=== PATIENT | female | born 1995 | race Two or more races ===

== ENCOUNTER 2024-05-03 23:38 | Emergency (ER) | payer MEDICAID, OTHER ==
[~2024-05-03] VITALS: Ht 157.5 cm; Wt 97.6 kg
[2024-05-03 23:45] VITALS: BP 112/72; PULSE 82; RESP 18; O2SAT 98
[2024-05-04] MEDS ORDERED: POLY17PO5 PO (00:51)
== END 2024-05-04 02:23 | disposition home or self-care (01) ==
LOC: ER 23:38
DX: K64.4 Residual hemorrhoidal skin tags (principal); K62.89 Other specified diseases of anus and rectum; K62.5 Hemorrhage of anus and rectum

== ENCOUNTER 2025-04-12 05:24 | Emergency (ER) | payer MEDICAID ==
[~2025-04-12] VITALS: Ht 160 cm; Wt 90.0 kg
[~2025-04-12 05:24] MED LIST: POLY17PO5 PO
[2025-04-12 06:57] LABS: Hematocrit 42.5 % (36.0-46.0); Hemoglobin 14.4 g/dL (12.2-16.2); Mean Corpuscular Hemoglobin 29.1 pg (28.0-32.0); Mean Corpuscular Hgb Conc. 33.9 g/dL (32.0-36.0); Platelet Count (auto) 414 10^3/uL (140-450); Red Blood Cells 4.94 10^6/uL (4.0-5.20); Red Cell Distribution Width 14.4 % (11.8-14.3); White Blood Cell 17.3 10^3/uL (4.4-10.8)
[2025-04-12 07:01] LABS: Sodium 142 mmol/L (136-145)
[2025-04-12 07:02] LABS: Anion Gap 14 (5-15); Carbon Dioxide 21 mmol/L (20-31)
[2025-04-12 07:03] LABS: Calcium 10.4 mg/dL (8.7-10.4); Chloride 107 mmol/L (98-107)
[2025-04-12 07:08] LABS: BUN/Creatinine Ratio 11.4 (10.0-20.0); Blood Urea Nitrogen 9 mg/dL (9-23); Glucose 96 mg/dL (74-106)
[2025-04-12 07:13] LABS: Band Neutrophils % (manual) 0; Basophils % (manual) 0 (0.0-2.0); Blast Cells 0; Metamyelocytes % 0; Myelocytes % 0; Promyelocytes % 0; Reactive Lymphocytes 0
[2025-04-12 07:25] LABS: Urine Bacteria FEW /hpf (None Seen); Urine Blood TRACE /uL (Negative); Urine Clarity Turbid (Clear); Urine Color Light-Orange (Yellow); Urine Mucus FEW (None Seen); Urine Protein, UAD 1+ (Negative); Urine Specific Gravity 1.033 (1.001-1.035); Urine Squamous Epithelial Cell MOD /hpf (<5); Urine Urobilinogen Normal (Negative); Urine WBC 28 /HPF (0-5)
[2025-04-12 07:38] LABS: Eosinophils % (manual) 1 (0-7); Lymphocytes % (manual) 33 (10.0-50.0); Monocytes % (manual) 12 (0-12); Platelet Estimate Adequate
[2025-04-12 07:39] LABS: Large Platelets FEW
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
--- NOTE | 2025-04-12 08:26 | DVH ---
CHEST RADIOGRAPH Indication: epigastric pain Technique: Single frontal view of the chest was obtained COMPARISON: None FINDINGS: Lines and Tubes: None Lungs: Clear Pleura: No effusion. No pneumothorax. Cardiomediastinal contours: Unremarkable Bones: Unremarkable IMPRESSION: No acute disease.
[2025-04-12 08:59] VITALS: BP 125/72; PULSE 80; RESP 16; TEMP 98; O2SAT 97
[2025-04-12] MEDS: SODIUM CHLORIDE 0.9% 1,000 ML IV ONE (09:05)
[2025-04-12] MEDS: PANTOPRAZOLE 40 MG/10 ML VIAL INJ IV ONE (09:05)
[2025-04-12] MEDS: cefTRIAXone 1GM/50ML D5W 50 ML IV ONE (09:06)
[2025-04-12] MEDS: ONDANSETRON HCL 4 MG/2 ML VIAL IV ONE (09:06)
[2025-04-12] MEDS: cefTRIAXone SOD 1,000 MG VL IM ONE (09:15)
[2025-04-12] MEDS ORDERED: CEFD300C2 PO (09:28)
== END 2025-04-12 09:43 | disposition home or self-care (01) ==
LOC: ER 05:24
DX: N30.00 Acute cystitis without hematuria (principal); K62.5 Hemorrhage of anus and rectum
CPT/HCPCS: 36415; 71045; 80048; 81001; 81025; 83605; 85007; 85027; 87040; 96372; 99284; J0696

== ENCOUNTER 2025-05-04 02:32 | Emergency (ER) | payer MEDICAID ==
[~2025-05-04] VITALS: Ht 157.5 cm; Wt 88.2 kg
[~2025-05-04 02:32] MED LIST changes: +CEFD300C2 PO
[2025-05-04 03:04] VITALS: BP 129/83; PULSE 62; RESP 19; TEMP 98.6; O2SAT 96
--- NOTE | 2025-05-04 03:07 | ED.PDOC ---
HPI (NEURO) HPI Comments 29 year old female presents to ER with complaints of headache x 2 days. Patient reports she has been experiencing intermittent headache diffuse to forehead with intermittent nausea x 2 days. She rates her current pain a 3/10 diffuse to forehead without radiation. Notes that prior to her headache starting today she developed blurred vision to left eye that she states fully subsided, denying any current vision changes. Denies use of medications for current symptoms and presents to ER alert and oriented x4, with steady gait, in no distress with vitals stable. Denies vomiting, numbness/tingling, fever, recent illness, extremity weakness, dizziness, neck pain, runny nose or any further symptoms/complaints Time Seen by MD: 02:33 Primary Care Provider: UNKNOWN Reviewed Notes: Nurses Notes, Medications, Allergies Information Source: Patient Mode of Arrival: Ambulatory Past Medical History PAST MEDICAL HISTORY: Denies Surgical History: Denies all surgeries INVAS TECH History: Denies all INVAS TECH Hx Family History Family History: Unknown Social History Smoker: Non-Smoker Alcohol: Denies ETOH Use Drugs: Denies Drug Use Lives In: Home Constitutional: denies: chills, diaphoresis, fatigue, fever, malaise, sweats, weakness, others EENTM: denies: blurred vision, double vision, ear bleeding, ear discharge, ear drainage, ear pain, ear ringing, eye pain, eye redness, hearing loss, mouth pain, mouth swelling, nasal discharge, nose bleeding, nose congestion, nose pain, photophobia, tearing, throat pain, throat swelling, voice changes, others Respiratory: denies: cough, hemoptysis, orthopnea, SOB at rest, shortness of breath, SOB with excertion, stridor, wheezing, others Cardiovascular: denies: chest pain, dizzy spells, diaphoresis, Dyspnea on exertion, edema, irregular heart beat, left arm pain, lightheadedness, palpitations, PND, syncope, others Gastrointestinal: reports: others (As stated in HPI) Genitourinary: denies: abnormal vagina bleeding, burning, dyspareunia, dysuria, flank pain, frequency, hematuria, incontinence, pain, , vagina discharge, urgency, others Neurological: reports: others (As stated in HPI) Musculoskeletal: denies: back pain, gout, joint pain, joint swelling, muscle pain, muscle stiffness, neck pain, others Integumetry: denies: bruises, change in color, change in hair/nails, dryness, laceration, lesions, lumps, rash, wounds, others Allergic/Immunocompromised: denies: Difficulty Healing, Frequent Infections, Hives, Itching, others Hematologic/Lymphatic: denies: anemia, blood clots, easy bleeding, easy bruising, swollen glands, others Endocrine: denies: excessive hunger, excessive sweating, excessive thirst, excessive urination, flushing, intolerance to cold, intolerance to heat, unexplained weight gain, unexplained weight loss, others Psychiatric: denies: anxiety, bipolar disorder, depression, hopeless, panic disorder, schizophrenia, sleepless, suicidal, others Physical Exam General Appearance: No Apparent Distress HEENT: Normal ENT Inspection, PERRL/EOMI, Pharynx Normal, TMs Normal Neck: Full Range of Motion, Non-Tender, Normal Respiratory: Chest Non-Tender, Lungs Clear, No Accessory Muscle Use, No Respi ratory Distress, Normal Breath Sounds Cardiovascular: No Murmur, No Gallop, Regular Rate/Rhythm Breast Exam: Deferred Gastrointestinal: NOT DONE Genitalia: Deferred Pelvic: Deferred Rectal: Deferred Extremities: Normal capillary refill, Normal range of motion Neurologic: Alert, project consultant II-XII nml as Tested, No Motor Deficits, Normal Affect, Normal Mood, No Sensory Deficits Cerebellar Function: Normal Reflexes: Normal Skin: Dry, Normal Color, Warm Lymphatic: No Adenopathy Was a procedure done? Was a procedure done?: No Sedation Sedation?: No Differential Diagnosis (SZ) Headache: Cluster, Subarachnoid Hemorrhage, Subdural Hemorrhage, Mass Lesion, Post-Traumatic X-Ray, Labs, Meds, VS Patient's neurological examination-unremarkable Patient had improvement in symptoms and in no distress prior to discharge Advised to drink plenty of fluids Advised to follow up with PCP in 1-2 days Patient alert and oriented x4 prior to discharge. Patient verbalized understanding and agreeable with current plan of care Advised to return to ER immediately if symptoms worsen Time of 1ST Reevaluation: 02:44 Reevaluation 1ST: N/A Patient Education/Counseling: Diagnosis, Treatment, Prognosis, Need For Follow Up Family Education/Counseling: No Family Present Departure 1 Departure Time of Disposition: 03:02 Impression: Primary Impression: Migraine headache with aura Qualified Codes: G43.109 - Migraine with aura, not intractable, without status migrainosus Disposition: 01 HOME / SELF CARE / HOMELESS Condition: Stable Discharged With: Self Critical Care Note Critical Care Time?: No Stability Stability form required: No Heart Score Heart Score: Heart Score Response (Comments) Value History N/A 0 EKG N/A 0 Age N/A 0 Risk Factors N/A 0 Troponin N/A 0 Total 0 ARSLAN ROLON May 04, 2025 03:07
== END 2025-05-04 03:24 | disposition home or self-care (01) ==
LOC: ER 02:32
DX: G43.109 Migraine with aura, not intractable, without status migrainosus (principal)